=== PATIENT | female | born 1990 | race Caucasian/White ===

== ENCOUNTER 2024-09-07 23:01 | Emergency (ER) | payer OTHER, SELFPAY ==
[2024-09-07 23:08] VITALS: BP 143/93; PULSE 120; TEMP 37.4; O2SAT 99; BMI 34.0
--- NOTE | 2024-09-07 23:29 | XR_ITS ---
The [address] [address] Patient Name: MONIQUE TONEY MRN: [id number] date: 1990 Sex: F Assigned Patient Location: ER Current Patient Location: Accession/Order Number: [id number] Exam Date: 09/07/2024 23:42 Report Date: 09/08/2024 01:28 At the request of: TOMA MARKER Procedure: XR chest 2V EXAMINATION:XR chest 2V INDICATION:fever, cough COMPARISON:None TECHNIQUE:Frontal and lateral projections of the chest are submitted. FINDINGS: The cardiomediastinal silhouette is not enlarged. The pulmonary vascularity is within normal limits. The lungs are clear based on chest radiography. There is no costophrenic angle blunting. XR/XR chest 2V IMPRESSION: Unremarkable plain film examination of the chest. Electronically authenticated by: SONJA JACINTO Date: 09/08/2024 01:28
--- NOTE | 2024-09-07 23:30 | ED_ITS ---
HPI - URI/Sore Throat General Chief Complaint: Upper Respiratory Infection Stated Complaint: COUGH Time Seen by Provider: 09/07/24 23:10 Source: patient Limitations: no limitations History of Present Illness HPI Narrative: This 34-year-old female, non-smoker, nondrinker who is 6 months and breast-feeding presents for evaluation of 5 days of generalized illness with nausea vomiting and diarrhea for the past several days associated with fever. The patient states her fever broke last night around 3 AM and since that time she has had a cough and pain in her chest with deep breathing. She states her cough is dry. She has pain with deep breathing and coughing but otherwise no chest pain. She has no abdominal pain. She denies the possibility of . She has no lower extremity pain or swelling. She is concerned that she has pneumonia because her father has a history of COPD and pneumonia and told her that it sounds like when he gets pneumonia when she coughs Related Data Home Medications ?Medication ?Instructions ?Recorded ?Confirmed meclizine 25 mg chewable tablet 25 mg PO TID-QID PRN dizziness 09/07/24 09/07/24 (Antivert) Allergies Allergy/AdvReac Type Severity Reaction Status Date / Time No Known Drug Allergies Allergy Verified 09/07/24 23:07 Review of Systems ROS Status of ROS 10 or more systems reviewed and unremark able except as noted in history and below PFSH PFSH Social History Little interest or pleasure in doing things: not at all Feeling down, depressed, or hopeless: not at all Exam Narrative Exam Narrative: Vital signs and Nursing Notes reviewed: Patient has a low-grade fever and is tachycardic with a pulse of 120, blood pressure is elevated 143/93, she is not hypoxic with pulse ox of 99% on room air General: Awake, alert, oriented, no acute distress, lying comfortably on the stretcher HEENT: Normocephalic atraumatic, mucous membranes are moist and pink, eyes are clear, normal conjunctiva, vision is grossly intact, posterior pharynx is normal in appearance. Neck: Supple, no meningeal signs, no anterior or posterior cervical lymphadenopathy Chest: Lungs are clear to auscultation with good air entry, there is no wheezing rhonchi or rales appreciated no accessory muscle use, patient is speaking in complete sentences-she does have an intermittent dry staccato cough but is otherwise able to speak in complete sentences CVS: Regular rate and rhythm S1-S2, tachycardic with pulse of 120 at triage no murmurs rubs or gallops, pulses are brisk and equal bilaterally ABD: Soft, nondistended, nontender, no rebound guarding or rigidity, bowel sounds are normal, no pulsatile masses appreciated Extremities: Moving all extremities, no lower extremity tenderness or swelling noted, negative Homans' sign, pulses are brisk and equal bilaterally Skin: Normal in appearance without rash,pallor, petechiae or purpura Neuro: No focal deficits Constitutional Vital Signs, click to edit/add: Last Vital Signs Temp 99.3 F 09/07/24 23:08 Pulse 107 H 09/08/24 00:23 Resp 18 09/08/24 00:23 BP 143/93 H 09/07/24 23:08 Pulse Ox 97 09/08/24 00:23 O2 Del Method Room Air 09/08/24 00:23 Course Vital Signs Vital signs: Vital Signs Temperature 99.3 F 09/07/24 23:08 Pulse Rate 120 H 09/07/24 23:08 Respiratory Rate 20 09/07/24 23:08 Blood Pressure 143/93 H 09/07/24 23:08 Pulse Oximetry 99 09/07/24 23:08 Oxygen Delivery Method Room Air 09/07/24 23:08 Temperature 99.3 F 09/07/24 23:08 Pulse Rate 107 H 09/08/24 00:23 Respiratory Rate 18 09/08/24 00:23 Blood Pressure 143/93 H 09/07/24 23:08 Pulse Oximetry 97 09/08/24 00:23 Oxygen Delivery Method Room Air 09/08/24 00:23 MDM - URI/Sore Throat MDM Narrative Medical decision making narrative: This 34-year-old female who is 6 months and a non-smoker presents for evaluation of 5 days of generalized illness with intermittent fever and cough. She has pain with coughing but otherwise no chest pain shortness of breath dizziness or syncope. She has no lower extremity pain or swelling. She states her fever broke around 3 AM. She states that she is concerned that she has pneumonia because her father states that her cough sounds like his cough when he gets pneumonia. She had a very low-grade fever in the emergency department is mildly tachycardic. Her lungs are clear. She was tested for influenza and COVID-19 and was negative. Two-view chest x-ray was reviewed by radiology and shows no acute findings. In the emergency department she was medicated with Tylenol, Zofran and a DuoNeb with clinical improvement. The results of her studies were discussed with her. She will be discharged home with cough medicine and an inhaler. She was encouraged to drink plenty of fluids and use Tylenol and Motrin as needed for ongoing fever or pain. Her symptoms are likely viral in nature as there is no sign of pneumonia on her chest x-ray or on her physical exam. Medical Records Medical records narrative: The [address] [address] XRay Report Signed Patient: MONIQUE TONEY MR#: [id number] : 1990 Acct:[id number] Age/Sex: 34 / F ADM Date: 09/07/24 Loc: ER Attending Dr: Ordering Physician: Kirsten Silverman Date of Service: 09/07/24 Procedure(s): XR chest 2V Accession Number(s): [id number] cc: Janice VERA ; Kirsten Silverman~ The [address] [address] Patient Name: MONIQUE TONEY MRN: [id number] date: 1990 Sex: F Assigned Patient Location: ER Current Patient Location: Accession/Order Number: [id number] Exam Date: 09/07/2024 23:42 Report Date: 09/08/2024 01:28 At the request of: KIRSTEN SILVERMAN Procedure: XR chest 2V EXAMINATION:XR chest 2V INDICATION:fever, cough COMPARISON:None TECHNIQUE:Frontal and lateral projections of the chest are submitted. FINDINGS: The cardiomediastinal silhouette is not enlarged. The pulmonary vascularity is within normal limits. The lungs are clear based on chest radiography. There is no costophrenic angle blunting. XR/XR chest 2V IMPRESSION: Unremarkable plain film examination of the chest. Electronically authenticated by: SONJA JACINTO Date: 09/08/2024 01:28 Lab Data Attestation: I reviewed the patient's lab results. Labs: Lab Results 09/07/24 Range/Units 23:45 Influenza Type A Ag Negative Influenza Type B Ag Negative SARS-CoV-2 Ag (CV2AG) Negative (NEGATIVE) Discharge Plan Discharge Chief Complaint: Upper Respiratory Infection Clinical Impression: Upper respiratory infection, Viral infection Patient Disposition: Home, Self-Care Time of Disposition Decision: 00:44 Condition: Good Prescriptions / Home Meds: No Action meclizine [Antivert] 25 mg tablet,chewable 25 mg PO TID-QID PRN (Reason: dizziness) Print Language: Czech Instructions: Upper Respiratory Infection (DC), Viral Syndrome (ED) Referrals: Janice VERA [Primary Care Provider] - 1 week Discharge Date/Time: 09/08/24 00:57
[2024-09-07] MEDS: ONDANSETRON 4 MG RAPDIS TABLET SL (23:44)
[2024-09-07] MEDS: ACETAMINOPHEN 325 MG TABLET 650 MG PO (23:44)
--- NOTE | 2024-09-07 23:48 | PC.NURSE ---
pt to XR via wheelchair at this time with [employer]ic.
[2024-09-08 00:03] LABS: Influenza Virus A Antigen Negative; Influenza Virus B Antigen Negative; Internal Control Within Normal Limits; SARS-CoV-2 Ag NEGATIVE (NEGATIVE)
[2024-09-08 00:13] VITALS: PULSE 103; O2SAT 96
[2024-09-08] MEDS: IPRATROPIUM/ALBUTEROL SULFATE 3 ML AMPUL.NEB IH (00:13)
[2024-09-08 00:23] VITALS: PULSE 107; O2SAT 97
== END 2024-09-08 00:57 | disposition home or self-care (01) ==
PROVIDERS: Emergency Provider Emergency Medicine; PCP Family Medicine
DX: B34.9 Viral infection, unspecified (principal); J06.9 Acute upper respiratory infection, unspecified; Z20.822 Contact with and (suspected) exposure to COVID-19
CPT/HCPCS: 71046; 87804; 87811; 94640; 99284; Q0162